=== PATIENT | male | born 2000 | race African-American/Black ===

== ENCOUNTER 2019-09-30 17:25 | Emergency (ER) | payer OTHER, SELFPAY ==
[2019-09-30 17:30] VITALS: BP 117/69; PULSE 75; RESP 18; TEMP 36.9; O2SAT 98
[2019-09-30 17:53] LABS: Bacteria Urine None Seen; RBC Urine None Seen (0-5/HPF)
[2019-09-30 18:14] LABS: Culture Indicated Urine Specimen Cultured; WBC Urine 5-10/HPF (0-5/HPF)
[2019-09-30 19:21] LABS: Urine N gonorrhoeae NOT DETECTED
[2019-09-30] MEDS: AZITHROMYCIN 250 MG TABLET 1000 MG PO (20:04)
[2019-09-30] MEDS: cefTRIAXone 500 MG VIAL 250 MG IM (20:24)
[2019-09-30 20:31] VITALS: BP 126/74; PULSE 86; RESP 15; O2SAT 98
--- NOTE | 2019-09-30 20:36 | ED.MALEGU ---
HPI - Male Genitourinary <BIJU Mars - Last Filed: 09/30/19 20:44> General Chief complaint: Urogenital-Male Stated complaint: wants std testing Time Seen by Provider: 09/30/19 18:33 Source: patient Mode of arrival: Ambulatory Limitations: no limitations History of Present Illness HPI Narrative: The patient is a 18-year-old male who denies pertinent medical history presents with a chief complaint of concern for sexually transmitted infection. He states that yesterday started hurting when he urinated, and then today he noted some penile discharge that he states look like pus. He denies any fevers nausea vomiting or diarrhea or abdominal pain. He denies any rashes or sores. He is concerned about sexually transmitted infection given the penile discharge and the fact that he had unprotected intercourse 2 weeks ago. He denies any STI history he has an appoint with primary care provider tomorrow morning Related Data Home Medications Medication Instructions Recorded Confirmed No Known Home Medications 09/30/19 09/30/19 Allergies Allergy/AdvReac Type Severity Reaction Status Date / Time No Known Drug Allergies Allergy Verified 09/30/19 17:39 Review of Systems <BIJU Mars - Last Filed: 09/30/19 20:44> Review of Systems Narrative: GENERAL: Denies chills, fatigue, malaise, fever, sweats. HEENT: Denies sinus pain, ear pain, sore throat, difficulty swallowing, dizziness. RESPIRATORY: Denies dyspnea, cough, wheezing, hemoptysis, sputum. CARDIOVASCULAR: Denies chest pain, palpitations, orthopnea, edema, GASTROINTESTINAL: Denies nausea, vomiting, abdominal pain, diarrhea, constipation, melena. : See HPI MUSCULOSKELETAL: denies weakness, joint pain, or bony pain SKIN: Denies rash, skin lesions, or other NEUROLOGIC: Denies weakness, headache, numbness, change in speech, confusion, seizures, incoordination. PSYCHIATRIC: No concerning psychosocial issues. 12 point review of systems is negative except for those stated above Patient History <BIJU Mars - Last Filed: 09/30/19 20:44> Social History Smoking Status: Never smoker Smoking Status: Never smoker alcohol intake frequency: 0-2 drinks per day Substance Use Type: does not use Exam <BIJU Mars - Last Filed: 09/30/19 20:44> Narrative Exam Narrative: GENERAL: This is a well-nourished, well-developed patient, in no acute distress HEAD: Atraumatic. Normocephalic. No temporal or scalp tenderness. EYES: Pupils equal round and reactive. Extraocular motions intact. No scleral icterus. No injection or drainage. ENT: Nose without bleeding, purulent drainage or septal hematoma. Throat without erythema, tonsillar hypertrophy or exudate. Uvula midline. Airway patent. NECK: Trachea midline. No JVD or lymphadenopathy. Supple, nontender, no meningeal signs. CARDIOVASCULAR: Regular rate and rhythm RESPIRATORY: no cough. No increased respiratory effort. No accessory muscle use. GASTROINTESTINAL: Abdomen soft, non-tender, nondistended. No hepato-splenomegaly, or palpable masses. No guarding. EXTREMITIES: No clubbing, cyanosis, or edema. No joint tenderness, effusion, or edema noted. BACK: Nontender without deformity or crepitance. No flank tenderness. NEURO: AOx3. SKIN: No rash or erythema visible skin : Done with BUCKY Mahmood at bedside. No sores or rash noted. Purulent penile discharge noted on exam. Positive cremasteric reflexes bilaterally. Initial Vital Signs Initial Vital Signs: Vital Signs Temperature 98.4 F 09/30/19 17:30 Pulse Rate 75 09/30/19 17:30 Respiratory Rate 18 09/30/19 17:30 Blood Pressure 117/69 09/30/19 17:30 Pulse Oximetry 98 09/30/19 17:30 <Laureen Brand MD - Last Filed: 10/01/19 03:16> Initial Vital Signs Initial Vital Signs: Vital Signs Temperature 98.4 F 09/30/19 17:30 Pulse Rate 75 09/30/19 17:30 Respiratory Rate 18 09/30/19 17:30 Blood Pressure 117/69 09/30/19 17:30 Pulse Oximetry 98 09/30/19 17:30 Course <BIJU Mars - Last Filed: 09/30/19 20:44> Orders Ordered: Discontinued Medications Azithromycin (Zithromax) 1,000 mg PO NOW ONE Stop: 09/30/19 19:33 Last Admin: 09/30/19 20:04 Dose: 1,000 mg Documented by: EMERY Ceftriaxone Sodium (Rocephin) 250 mg IM NOW ONE Stop: 09/30/19 19:33 Last Admin: 09/30/19 20:24 Dose: 250 mg Documented by: EMERY Ondansetron HCl (Zofran Odt) 4 mg SL NOW ONE Stop: 09/30/19 20:43 Last Admin: 09/30/19 20:44 Dose: 4 mg Documented by: EMERY Vital Signs Vital signs: Vital Signs - 8 hr 09/30/19 20:31 Pulse Rate 86 Respiratory Rate 15 Blood Pressure [Left Arm] 126/74 Pulse Oximetry 98 <Laureen Brand MD - Last Filed: 10/01/19 03:16> Orders Ordered: Discontinued Medications Azithromycin (Zithromax) 1,000 mg PO NOW ONE Stop: 09/30/19 19:33 Last Admin: 09/30/19 20:04 Dose: 1,000 mg Documented by: EMERY Ceftriaxone Sodium (Rocephin) 250 mg IM NOW ONE Stop: 09/30/19 19:33 Last Admin: 09/30/19 20:24 Dose: 250 mg Documented by: EMERY Ondansetron HCl (Zofran Odt) 4 mg SL NOW ONE Stop: 09/30/19 20:43 Last Admin: 09/30/19 20:44 Dose: 4 mg Documented by: EMERY Vital Signs Vital signs: Vital Signs - 8 hr 09/30/19 20:31 Pulse Rate 86 Respiratory Rate 15 Blood Pressure [Left Arm] 126/74 Pulse Oximetry 98 MDM - Male Genitourinary <BIJU Mars - Last Filed: 09/30/19 20:44> Lab Data Labs: Lab Results 09/30/19 09/30/19 Range/Units 17:39 17:39 Urine RBC None seen (0-5/HPF) Urine WBC 5-10/hpf H (0-5/HPF) Urine Bacteria None seen (None) Ur Culture Indicated? Specimen cultured Ur Chlamydia DNA (PCR) Detected H N gonorrhoeae DNA (PCR) Not detected Urine Dip Bedside Urine Glucose Negative Bedside Urine Bilirubin - Negative Bedside Urine Ketone - Negative Urine Specific [place] 1.015 Bedside Urine Occult Blood - Negative Bedside Urine pH 7.0 Bedside Urine Protein +/- 15 Bedside Urine Urobilinogen - Negative Bedside Urine Nitrite - Negative Bedside Urine Leukocytes + 70 Esterase MDM Narrative Medical decision making narrative: The patient is a 18-year-old male who presents with a chief complaint of possible sexually transmitted infection. He complains of penile discharge which is noted on exam. He has no signs of systemic infection, is afebrile in the emergency department given. Given his unprotected sexual intercourse and exam, we elected to prophylax bili treat him for gonorrhea and chlamydia with 1 g p.o. azithromycin as well as 250 mg ceftriaxone IM as per up-to-date recommendations. Patient already has an appointment with primary care provider tomorrow morning. I discussed at length further STI testing should be done as he if his obtained gonorrhea chlamydia he is at risk for others such as syphilis, HIV. Recommended further blood testing. Patient states understanding. Strongly recommended safe sex practices, and patient states he will ?not make that mistake again.Patient ended up testing positive for chlamydia. Discussed holding off on sexual activity until he is clear. Patient has no questions or concerns upon discharge and states understanding of return precautions as well as follow-up care. <Laureen Brand MD - Last Filed: 10/01/19 03:16> Lab Data Labs: Lab Results 09/30/19 09/30/19 Range/Units 17:39 17:39 Urine RBC None seen (0-5/HPF) Urine WBC 5-10/hpf H (0-5/HPF) Urine Bacteria None seen (None) Ur Culture Indicated? Specimen cultured Ur Chlamydia DNA (PCR) Detected H N gonorrhoeae DNA (PCR) Not detected Urine Dip Bedside Urine Glucose Negative Bedside Urine Bilirubin - Negative Bedside Urine Ketone - Negative Urine Specific [place] 1.015 Bedside Urine Occult Blood - Negative Bedside Urine pH 7.0 Bedside Urine Protein +/- 15 Bedside Urine Urobilinogen - Negative Bedside Urine Nitrite - Negative Bedside Urine Leukocytes + 70 Esterase Discharge Plan Departure Patient Disposition: Home Clinical Impression: Chlamydia Discharge Date/Time: 09/30/19 20:56 Instructions: Facts About Sexually Transmitted Infections, How to Detect and Treat STDs, Chlamydia: The Silent STD, DI for Chlamydia Activity Restrictions/Additional Instructions: Thank you for trusting us with your care today. Today you tested positive for chlamydia. We have treated you with 2 different antibiotics. Please follow-up with primary care provider tomorrow as scheduled. You may need further sexually transmitted disease testing. As I discussed, please engage in safe sex practices. Please inform your partners of your positive diagnosis so that they can be tested as well Please come back to the emergency department for any acute concerns. Prescriptions: No Action No Known Home Medications RF: 0 Referrals: [facility] [Provider Group] [facility] [Outside]
[2019-09-30] MEDS: ONDANSETRON 4 MG ODT SL (20:44)
[2019-10-01 10:19] LABS: Urine Chlamydia DETECTED
== END 2019-09-30 20:56 | disposition home or self-care (01) ==
PROVIDERS: Emergency Medicine; Emergency Provider Nurse Practitioner Family
DX: A74.9 Chlamydial infection, unspecified (principal)
CPT/HCPCS: 81003; 81015; 87086; 87491; 87591; 96372; 99283; J0696